=== PATIENT | male | born 1950 | race Two or more races ===

== ENCOUNTER 2025-06-04 12:17 | Emergency (ER) | payer OTHER ==
[~2025-06-04] VITALS: Ht 188 cm; Wt 90.7 kg
[2025-06-04] MEDS ORDERED: AMIODARONE HCL200 MG PO (13:42)
[2025-06-04] MEDS ORDERED: ACETAMINOPHEN 500 MG GEL..CAP PO ONE ×2 (14:25→14:30)
[2025-06-04] MEDS ORDERED: FAMOTIDINE/PF 20 MG/2 ML VIAL ONE (14:25)
[2025-06-04] MEDS ORDERED: ENOXAPARIN SODIUM 80 MG/0.8 ML SYRINGE SUBCUTANEO ONE ×2 (14:25→14:30)
[2025-06-04] MEDS ORDERED: FAMOTIDINE/PF 20 MG in 0.9 % SODIUM CHLORIDE 8 ML IV PUSH ONE (14:30)
[2025-06-04] MEDS ORDERED: 0.9 % SODIUM CHLORIDE 1,000 ML IV SCH (14:30)
[2025-06-04 14:39] LABS: BASO % 0.4 % (0.1-1.2); EOS # 0.15 (0.04-0.54); EOS % 1.8 % (0.7-7.0); LYMPH # 1.12 (1.18-3.74); LYMPH % 13.5 % (19.3-53.1); MEAN PLATELET VOLUME 10.30 fl (9.4-12.4); MONO # 1.03 (0.24-0.82); NEUT # 5.95 (1.56-6.13); NEUT % 71.7 % (34.0-71.1); RED CELL DISTRIBUTION WIDTH 12.9 % (11.6-14.4)
[2025-06-04 14:52] LABS: MONO % 12.4 % (4.7-12.5)
[2025-06-04 15:18] LABS: ALT/SGPT 30.0 U/L (12-78); AST/SGOT 18.0 U/L (15-37); BILIRUBIN TOTAL 0.73 mg/dL (0.3-1.2); BUN CREA RATIO 8.0 (7.0-25.0); CREATININE SERUM 1.68 mg/dL (0.70-1.30); GFR 39.92; GLOBULINA 3.1 G/DL (2.4-3.5); GLUCOSE FASTING 103.0 mg/dL (65-100); OSMOLALITY SERUM 283.0 MOSM/KG (275-295)
[2025-06-04 16:05] LABS: D DIMER < 0.19 MG/L
[2025-06-04 16:06] LABS: INR 0.97
[2025-06-04 16:36] LABS: URINE APPEARANCE Clear; URINE BILIRRUBIN Negative (NEGATIVE); URINE BLOOD Negative; URINE COLOR Yellow; URINE GLUCOSE Negative (NEGATIVE); URINE KETONE Negative (NEGATIVE); URINE LEUKOCYTE Negative; URINE NITRATE Negative; URINE PROTEIN Negative (NEGATIVE); URINE UROBILINOGEN 0.2 E.U./dl
[2025-06-04 16:44] LABS: URINE RBC 8.5 uL (0.0-20.8)
[2025-06-04 16:48] LABS: URINE BACTERIA 1.1 uL (0.0-1933); URINE CAST 0.00 uL (0.0-1.40); URINE EPITHELIAL CELLS 0.4 uL (0.0-38.8); URINE WBC 0.7 uL (0.0-23.2)
== END 2025-06-04 16:59 | disposition home or self-care (01) ==
LOC: ER 12:17
PROVIDERS: General Practice
DX: I48.92 Unspecified atrial flutter (principal); R07.89 Other chest pain; R00.2 Palpitations; Z88.0 Allergy status to penicillin
CPT/HCPCS: 36415; 71046; 82803; 93005; 93041; 96365; 96366; 99283; J3490; J7030